=== PATIENT | female | born 1990 | race Caucasian/White ===

== ENCOUNTER 2018-03-10 18:26 | Emergency (ER) | payer MEDICAID ==
[~2018-03-10] VITALS: Ht 160 cm; Wt 58.0 kg
[2018-03-10 18:37] VITALS: BP 146/85
== END 2018-03-10 22:55 | disposition left against medical advice (07) ==
LOC: ER 20:28
DX: Z53.21 Procedure and treatment not carried out due to patient leaving prior to being seen by health care provider (principal)

== ENCOUNTER 2018-08-25 17:35 | Observation (INO) | payer MEDICAID ==
[~2018-08-25] VITALS: Ht 152.4 cm; Wt 57.2 kg
[2018-08-25] MEDS ORDERED: LACTATED RINGERS 1,000 ML IV SCH (18:15)
[2018-08-25 18:39] LABS: CLARITY URINE CLEAR (CLEAR); COLOR URINE YELLOW (YELLOW); KETONES URINE NEGATIVE (NEGATIVE); LEUKOCYTE ESTERASE URINE NEGATIVE (NEGATIVE); NITRITE URINE NEGATIVE (NEGATIVE); OCCULT BLOOD URINE NEGATIVE (NEGATIVE); PROTEIN URINE NEGATIVE (NEGATIVE); SPECIFIC GRAVITY URINE 1.015 (1.005-1.030)
[2018-08-25] MEDS ORDERED: PREN1TAB78 MT (18:57)
[2018-08-25] MEDS ORDERED: CEFAZOLIN 2,000 MG in DEXT 5% WATER 100 ML IV SCH (19:00)
[2018-08-25] MEDS ORDERED: BETAMETHASONE ACET/BETAMET 30 MG/5 ML VIAL IM SCH (19:00)
== END 2018-08-25 20:30 | disposition home or self-care (01) ==
LOC: 8 EST LDRP 17:35
PROVIDERS: ADMIT Acupuncturist; ATTEND Acupuncturist
DX: O42.913 Preterm premature rupture of membranes, unspecified as to length of time between rupture and onset of labor, third trimester (principal); O13.3 Gestational [pregnancy-induced] hypertension without significant proteinuria, third trimester; O26.893 Other specified pregnancy related conditions, third trimester; M54.9 Dorsalgia, unspecified; R10.9 Unspecified abdominal pain; Z3A.28 28 weeks gestation of pregnancy
CPT/HCPCS: 81003; 87086; 96365; 96372; G0378; J0690; J0702; J7060; 96360

== ENCOUNTER 2018-08-26 18:02 | Observation (INO) | payer MEDICAID ==
[~2018-08-26] VITALS: Ht 152.4 cm; Wt 57.2 kg
[~2018-08-26 18:02] MED LIST: PREN1TAB78 MT
[2018-08-26] MEDS ORDERED: BETAMETHASONE ACET/BETAMET 30 MG/5 ML VIAL IM NR (18:30)
== END 2018-08-26 18:50 | disposition home or self-care (01) ==
LOC: 8 EST LDRP 18:02
PROVIDERS: ADMIT Acupuncturist; ATTEND Acupuncturist
DX: Z34.93 Encounter for supervision of normal pregnancy, unspecified, third trimester (principal); Z3A.28 28 weeks gestation of pregnancy
CPT/HCPCS: 96372; G0378

== ENCOUNTER 2019-01-01 13:30 | Emergency (ER) | payer MEDICAID ==
[~2019-01-01] VITALS: Ht 157.5 cm; Wt 55.0 kg
[2019-01-01 13:40] VITALS: BP 118/70
== END 2019-01-01 17:06 | disposition left against medical advice (07) ==
LOC: ER 13:30
DX: Z53.21 Procedure and treatment not carried out due to patient leaving prior to being seen by health care provider (principal)

== ENCOUNTER 2020-12-08 18:39 | Emergency (ER) | payer MEDICAID ==
[~2020-12-08] VITALS: Ht 157.5 cm; Wt 65.0 kg
[2020-12-08] MEDS ORDERED: SODIUM CHLORIDE 0.9% 1,000 ML IV ONE (19:15)
[2020-12-08 19:43] LABS: CLARITY URINE CLEAR (CLEAR); COLOR URINE YELLOW (YELLOW); KETONES URINE NEGATIVE (NEGATIVE); LEUKOCYTE ESTERASE URINE NEGATIVE (NEGATIVE); NITRITE URINE NEGATIVE (NEGATIVE); OCCULT BLOOD URINE NEGATIVE (NEGATIVE); PH URINE 6.5 (4.5-8.0); PROTEIN URINE NEGATIVE (NEGATIVE); SPECIFIC GRAVITY URINE 1.007 (1.005-1.030); UROBILINOGEN URINE 0.2 E.U./dL (0.2-1.0)
[2020-12-08 19:45] LABS: BASOPHILS % 0.4 % (0.0-2.0); HEMATOCRIT. 43.5 % (36.0-48.0); HEMOGLOBIN. 14.9 g/dL (12.0-16.0); LYMPHOCYTES % 32.2 % (20.0-50.0); MEAN CORPUSCULAR HEMOGLOBIN 29.1 pg (28.0-32.0); MEAN CORPUSCULAR VOLUME 84.7 fL (81.0-99.0); MEAN PLATELET VOLUME 10.1 fl (7.4-10.4); MONOCYTES % 6.3 % (2.0-8.0); NEUTROPHILS % 60.1 % (40.0-76.0); PLATELET 177 x1000/uL (130-400); RED BLOOD CELL COUNT 5.13 mill/uL (4.2-5.4); RED CELL DISTRIBUTION WIDTH 12.9 % (11.6-14.6)
[2020-12-08 19:53] LABS: CHLORIDE 107 mEq/L (98-107)
[2020-12-08 20:04] LABS: B-HCG QUANTITATIVE 3 mIU/mL (<3)
[2020-12-08 20:05] LABS: HCG SCREEN NEGATIVE
[2020-12-08 22:45] VITALS: BP 135/83
== END 2020-12-08 22:46 | disposition home or self-care (01) ==
LOC: ER 18:39
DX: R10.32 Left lower quadrant pain (principal); R03.0 Elevated blood-pressure reading, without diagnosis of hypertension; Z32.02 Encounter for pregnancy test, result negative; Z98.51 Tubal ligation status
CPT/HCPCS: 36415; 76801; 76817; 80053; 81003; 84702; 84703; 85025; 86850; 86900; 86901; 96360; 99284; J7030

== ENCOUNTER 2023-08-13 19:29 | Emergency (ER) | payer BC, MEDICAID ==
[~2023-08-13] VITALS: Ht 152.4 cm; Wt 63.0 kg
[2023-08-13 19:41] VITALS: O2SAT 97
[2023-08-13] MEDS: IBUPROFEN 400MG TABLET PO ONE (21:26)
[2023-08-13 22:00] LABS: BASOPHILS % 0.4 % (0.0-2.0); EOSINOPHILS % 1.8 % (0.0-5.0); HEMATOCRIT. 44.2 % (36.0-48.0); HEMOGLOBIN. 14.6 g/dL (12.0-16.0); MEAN CORPUSCULAR HEMOGLOBIN 29.4 pg (28.0-32.0); MEAN CORPUSCULAR HGB CONC 33.1 g/dL (31.0-37.0); MEAN CORPUSCULAR VOLUME 88.7 fL (81.0-99.0); MEAN PLATELET VOLUME 9.8 fl (7.4-10.4); MONOCYTES % 6.2 % (2.0-8.0); NEUTROPHILS % 47.6 % (40.0-76.0); PLATELET 171 x1000/uL (130-400); RED BLOOD CELL COUNT 4.98 mill/uL (4.2-5.4); RED CELL DISTRIBUTION WIDTH 12.9 % (11.6-14.6); WHITE BLOOD COUNT 6.9 x1000/uL (4.5-11.0)
[2023-08-13 22:15] LABS: HCG SCREEN NEGATIVE
[2023-08-13 22:19] LABS: ALANINE AMINOTRANSFERASE 36 IU/L (10-49); ALBUMIN 4.9 g/dL (3.2-4.8); ASPARTATE AMINOTRANSFERASE 30 IU/L (<34); BILIRUBIN TOTAL 0.5 mg/dL (0.1-1.0); CALCIUM 9.5 mg/dL (8.7-10.4); CARBON DIOXIDE 26 mEq/L (21-32); CHLORIDE 107 mEq/L (98-107); CREATININE 0.7 mg/dL (0.6-1.0); GLUCOSE 90 mg/dL (70-105); POTASSIUM 3.7 mEq/L (3.5-5.1); PROTEIN TOTAL 7.7 g/dL (6.0-8.3); SODIUM 139 mEq/L (136-145); UREA NITROGEN BLOOD 10 mg/dL (9-23)
[2023-08-13 22:21] LABS: TROPONIN I HIGH SENSITIVITY < 4 ng/L (3.0-34)
[2023-08-13] MEDS ORDERED: IBUP-2028 MT (23:43)
[2023-08-14 00:06] VITALS: BP 112/78; PULSE 80; RESP 16; TEMP 98.7
== END 2023-08-14 00:08 | disposition home or self-care (01) ==
LOC: ER 19:29
DX: R07.81 Pleurodynia (principal); F41.9 Anxiety disorder, unspecified; Z98.890 Other specified postprocedural states; Z98.51 Tubal ligation status
CPT/HCPCS: 36415; 71045; 80053; 81025; 83880; 84484; 84703; 85025; 85379; 93005; 99285